=== PATIENT | male | born 1955 | race Caucasian/White ===

== ENCOUNTER 2025-06-29 06:02 | Observation (INO) ==
--- NOTE | 2025-04-20 11:23 | Anesthesiology Consultation ---
Date of Service April 20, 2025 Assessment & Plan (1) Encounter for pre-operative examination: - check BSG am DOS. - Per store person on 04/20/25: No known infectious disease contacts, current infectious disease symptoms in past 10 days or COVID positive test result in the past 30 days. Chart Review Chart Review: Acceptable Risk for Surgery and Patient NOT seen in Pre Admission Testing History Surgery Operation Date: 04/27/25 10:00 Proposed Procedures p Robotic Assisted Laparoscopic Partial Nephrectomy, Possible Radical Nephrectomy, Possible Laparoscopic Hand-Assisted - Right - Nghia Rivers DO Height/Weight Height: 5 ft 10 in Weight: 122.47 kg Allergies Allergy/AdvReac Type Severity Reaction Status Date / Time yellow dye Allergy Intermediate Lips Verified 04/20/25 10:32 Swelling penicillin AdvReac Intermediate Gastrointestinal Uncoded 04/20/25 10:32 Upset, Abdominal Pain Medications Home Medications Medication Instructions Recorded Confirmed Last Taken atorvastatin 80 mg tablet 80 mg PO HS 04/05/25 04/20/25 Unknown finasteride 5 mg tablet (Proscar) 5 mg PO QAM 04/05/25 04/20/25 Unknown gabapentin 400 mg capsule 400 mg PO TID 04/05/25 04/20/25 Unknown (Neurontin) lisinopril 20 mg tablet (Zestril) 20 mg PO QAM 04/05/25 04/20/25 Unknown metformin 500 mg tablet 500 mg PO HS 04/05/25 04/20/25 Unknown multivit,Ca,min-iron 8 mg-folic 1 tab PO DAILY 04/05/25 04/20/25 Unknown acid 200 mcg-lycopene 600 mcg tablet (Centrum Men) niacin 500 mg tablet 500 mg PO 04/05/25 04/20/25 Unknown omeprazole 20 mg capsule,delayed 20 mg PO QAM 04/05/25 04/20/25 Unknown release aspirin 81 mg tablet 81 mg PO QAM 04/20/25 04/20/25 Unknown metoprolol succinate 25 mg 25 mg PO QAM 04/20/25 04/20/25 Unknown tablet,extended release 24 hr tamsulosin 0.4 mg capsule (Flomax) 0.4 mg PO QAM 04/20/25 04/20/25 Unknown Past Medical History Medical History (Updated 04/20/25 @ 11:20 by Marilyn M. Onink, PA-C) Acid reflux History of Lyme disease completed antibiotic tx History of pneumonia 10/2024 - [facility] IP - resolved History of renal cell carcinoma 2016 - surgery only [facility] - reoccurence, reason for procedure 04/27/25 History of stroke 2014? - no residuals - unsure if ever went to neurology Hypertension Prediabetes Oral Renal mass Reason for procedure 04/27/25 Past Surgical History Surgical History History of arthroplasty of left knee History of arthroscopy of left knee History of colonoscopy History of partial nephrectomy 2016 [facility] Social History Smoking Status: Former smoker Do You Dip or Chew Tobacco: No ("Years ago") Smoking End Date: "Years ago 12 years ago" Hx Alcohol Use: Yes Alcohol type: beer alcohol intake frequency: 0-2 drinks per day Hx Substance Use: No substance use type: does not use Lab Results Anesthesia Preop Results Results Anesthesia Widget: WBC 10.24 K/ul (4.8-10.8) 04/14/25 Hgb 13.6 g/dl (14.0-18.0) L 04/14/25 Hct 40.0 % (42.0-52.0) L 04/14/25 Plt 309 K/uL (130-400) 04/14/25 Na 139 mmol/L (136-145) 04/14/25 K 3.8 mmol/L (3.5-5.1) 04/14/25 Cl 104 mmol/L (98-107) 04/14/25 CO2 28 mmol/L (21-32) 04/14/25 BUN 8 mg/dl (6-23) 04/14/25 Creat 1.11 mg/dl (0.6-1.4) 04/14/25 Glucose Level 121 mg/dl (70-99(Fasting)) H 04/14/25 Testing Electrocardiogram Date: 04/14/25 NSR, rate 77 bpm Possible anterior infarct, age undetermined Chest X-Ray Date: 04/14/25 No acute findings. Other Testing Abdomen pelvis CT 04/14/25 Right renal enhancing mass lesion, likely neoplastic; the possibility of renal cell carcinoma could not be excluded.
[~2025-06-29 06:02] MED LIST: LACTATED RINGER'S 1,000 ML IV SCH; ceFAZolin 3000MG 3,000 MG/72.5 ML BAG IV SCH
[2025-06-29 06:43] LABS: Hematocrit (blood only) 41.3 % (42.0-52.0); Hemoglobin 13.4 g/dl (14.0-18.0); Immature Granulocytes # (auto) 0.06 K/uL (0.01-0.20); Immature Granulocytes % (auto) 0.6 %; Mean Corpuscular Hemoglobin 30.2 pg (25.0-34.0); Mean Corpuscular Volume 93.0 fL (80.0-100.0); Platelet Count 262 K/uL (130-400); RDW Standard Deviation 47.1 fL (36.4-46.3); Red Blood Count 4.44 M/uL (4.70-6.10); White Blood Count 10.35 K/ul (4.8-10.8)
[2025-06-29] MEDS ORDERED: ROCURONIUM BROMIDE 10 MG/ML 5 ML VIAL IV ONE ×3 (06:43→09:21)
[2025-06-29] MEDS: LACTATED RINGER'S 1,000 ML IV SCH ×2 (06:43→13:27)
[2025-06-29] MEDS ORDERED: MIDAZOLAM HCL 1 MG/ML 2ML VIAL ONE (06:43)
[2025-06-29] MEDS ORDERED: PHENYLEPHRINE HCL 10 MG/ML VIAL ONE (06:43)
[2025-06-29] MEDS ORDERED: ONDANSETRON INJ 2 MG/ML 2 ML VIAL ONE (06:43)
[2025-06-29] MEDS ORDERED: PROPOFOL IV EMULSION 10 MG/ML 20 ML VIAL IV ONE (06:43)
[2025-06-29] MEDS ORDERED: LIDOCAINE 2% 2 ML VIAL/AMP(20MG/ML) INFIL ONE (06:43)
[2025-06-29] MEDS ORDERED: ONDANSETRON INJ 2 MG/ML 2 ML VIAL IV PRN ×2 (07:07→12:27)
[2025-06-29] MEDS ORDERED: ATROPINE SULFATE 0.1 MG/ML 10ML SYR IV PRN (07:07)
--- NOTE | 2025-06-29 07:13 | History & Physical Report ---
Date of Service June 29, 2025 Assessment & Plan (1) History of renal cell carcinoma: (2) Renal mass: (3) History of renal cell cancer: (4) Elevated PSA: Plan Patient with history of RCC s/p partial nephrectomy with development of new mass. Patient has greater than 3 cm mass that appear to be centrally located and causing now possible compression on the collecting system with patient's significant history of kidney cancer with likely reoccurrence and involvement of the central portion of the kidney with close proximity to the vessels. Had extensively discussed possible need for radical nephrectomy as opposed to partial. Will likely plan to move forward with partial nephrectomy however may need to convert to radical depending on the actual appearance of the mass once the mass is able to be further evaluated. Did discuss possible need to convert to a lap hand-assisted as well if unable to safely remove the tumor without possible injury or findings of invasion into the vessels or collecting system. Risks and benefits discussed at length for procedure. These include bleeding, infection, injury to surrounding tissues or organs, and risks associated with anesthesia. Patient states understanding and agrees to proceed. Will sign consent and proceed. Plan for right laparoscopic robot assisted partial nephrectomy possible radical nephrectomy possible hand-assisted laparoscopic History of Present Illness Primary Care Provider: Rui Carrasco Patient here for procedure. Centrally located renal mass suspicious for malignancy. No changes in medical issues. No major changes in urinary issues. Continued issues and concerns. No change in pain or discomfort. No severe fevers or chills. No chest pain or shortness of breath. Risks and benefits discussed at length for procedure. These include bleeding, infection, injury to surrounding tissues or organs, and risks associated with anesthesia. Patient and/or family states understanding and agrees to proceed. Consent and supporting information completed. Allergies Allergy/AdvReac Type Severity Reaction Status Date / Time yellow dye Allergy Intermediate Lips Verified 06/29/25 06:06 Swelling Penicillins AdvReac Intermediate Gastrointestinal Verified 06/29/25 06:06 Upset Home Medications Medication Instructions Recorded Confirmed Type atorvastatin 80 mg tablet 80 mg PO HS 04/05/25 06/29/25 History finasteride 5 mg tablet (Proscar) 5 mg PO QAM 04/05/25 06/29/25 History gabapentin 400 mg capsule 400 mg PO TID 04/05/25 06/29/25 History (Neurontin) lisinopril 20 mg tablet (Zestril) 20 mg PO QAM 04/05/25 06/29/25 History metformin 500 mg tablet 500 mg PO HS 04/05/25 06/29/25 History multivit,Ca,min-iron 8 mg-folic 1 tab PO DAILY 04/05/25 06/29/25 History acid 200 mcg-lycopene 600 mcg tablet (Centrum Men) niacin 500 mg tablet 500 mg PO HS 04/05/25 06/29/25 History omeprazole 20 mg capsule,delayed 20 mg PO QAM 04/05/25 06/29/25 History release aspirin 81 mg tablet 81 mg PO QAM 04/20/25 06/29/25 History metoprolol succinate 25 mg 25 mg PO QAM 04/20/25 06/29/25 History tablet,extended release 24 hr tamsulosin 0.4 mg capsule (Flomax) 0.4 mg PO QAM 04/20/25 06/29/25 History ibuprofen 400 mg tablet 400 mg PO Q6H PRN Pain 06/29/25 06/29/25 History Past Med/Surg History Problem List Elevated PSA History of renal cell cancer Sciatica Medical History Acid reflux Prediabetes Oral History of Lyme disease completed antibiotic tx History of stroke 2014? - no residuals - unsure if ever went to neurology Hypertension History of pneumonia 10/2024 - [facility] IP - resolved History of renal cell carcinoma 2016 - surgery only [facility] - reoccurence, reason for procedure 04/27/25 Renal mass Reason for upcoming procedure Surgical History History of arthroscopy of left knee History of arthroplasty of left knee History of colonoscopy History of partial nephrectomy 2016 [facility] Family History Grandmother Diabetes Social History Smoking Status: Former smoker Tobacco Type: Cigarettes and Smokeless Tobacco (Dip or Chew) Smoking End Date: 15 or more; Second Hand Exposure: No; Do You Dip or Chew Tobacco: No (quit over 10 yrs ago); Tobacco Cessation Education Requested by Patient: No Hx Alcohol Use: Yes Alcohol type: beer Hx Substance Use: No Preferred Language: Serbian Communication Ability: Effective Knife Blade Polisher Required: No Beliefs That Will Affect Care: None Current Living Situation: Spouse Other Information That Helps Us Care for You: No Feels Safe at Home: Yes Safety Concerns: Feels Safe At This Time Assistive Devices: None Review of Systems All systems reviewed & are unremarkable except as noted in HPI & below Physical Exam Physical Exam: General: Alert/Arousable. No Acute illness. HEENT: Inspection normal. Normal inspection of face. Normal inspection of neck. Psychologic: Normal affect/No change in mentation. Respiratory: No use of accessory muscles. No respiratory changes or exacerbation or changes with tachypnea or dyspnea. Cardiovascular: No tachycardia Skin: [place] and Dry. No new rashes or visible lesions. Abdomen: Normal inspection. No guarding. Results & Data Vital Signs (Past 12 Hours) Vital Signs Temp Pulse Resp BP Pulse Ox O2 Del Method 06/29/25 06:16 Room Air 06/29/25 06:16 36.8 C 85 20 179/92 H 97 Room Air PG Care Time/CCT Total # of Minutes Spent Total Time Spent with Patient: Total time spent is greater than 50% in coordination of care (as documented) at patient's floor/unit and/or counseling patient: Coding Level of Care Code None Diagnoses History of renal cell carcinoma Z85.528 Renal mass N28.89 History of renal cell cancer Z85.528 Elevated PSA R97.20
[2025-06-29 07:14] LABS: Anion Gap 10.0 (3-11); Blood Urea Nitrogen 17.0 mg/dl (6-23); Calcium 9.1 mg/dl (8.6-10.3); Carbon Dioxide 23.0 mmol/L (21-32); Chloride 105.0 mmol/L (98-107); Creatinine Clr Calc Pharmacy 82.7 ml/min; Glucose 106.0 mg/dl (70-99(Fasting)); Potassium 4.3 mmol/L (3.5-5.1); Sodium 138.0 mmol/L (136-145)
[2025-06-29] MEDS: ceFAZolin 3000MG 3,000 MG/72.5 ML BAG IV SCH (07:24)
[2025-06-29] MEDS ORDERED: DEXAMETHASONE SOD INJ 4 MG/ML VIAL ONE (08:05)
[2025-06-29] MEDS ORDERED: ACETAMINOPHEN 1000 MG/100 ML IV IV ONE (08:08)
[2025-06-29] MEDS ORDERED: DexMEDEtomidine HCL IV 100 MCG/ML VIAL IV ONE (08:09)
[2025-06-29] MEDS ORDERED: KETAMINE HCL 10MG/ML SYR ONE (08:09)
[2025-06-29] MEDS ORDERED: GLYCOPYRROLATE 0.2 MG/ML VIAL ONE (08:46)
[2025-06-29] MEDS: FLOSEAL HEMOSTATIC MATRIX 10ML TOP SCH (10:17)
[2025-06-29] MEDS: SURGICEL ABSORB HEMOSTAT 2IN X 14IN TOP SCH (10:17)
[2025-06-29] MEDS: TISSEEL FIBRIN SEALANT 10ML TOP SCH (10:18)
[2025-06-29] MEDS ORDERED: SUGAMMADEX SODIUM 200 MG/2 ML VIAL IV ONE ×2 (10:26)
[2025-06-29] MEDS: BUPIVACAINE 0.5 % 5 MG/1 ML MPF 30ML VIAL ONE (10:40)
--- NOTE | 2025-06-29 11:07 | Operative Report ---
PG Post Operative Report Pre & Post Diagnosis Operation Date: 06/29/25 07:30 Pre-Op Diagnosis: 1. History of renal cell carcinoma, 2. Renal mass, 3. History of renal cell cancer, 4. Elevated PSA Post-Op Diagnosis: 1. History of renal cell carcinoma, 2. Renal mass, 3. History of renal cell cancer, 4. Elevated PSA I identified the patient and participated in the time-out.: Yes Procedure Operation Date: 06/29/25 07:30 Actual Procedures Robotic Assisted Laparoscopic Radical Right Nephrectomy with extensive lysis of adhesions (Right) - Nghia Rivers, Surgeon Nghia Rivers, II, DO Reliability Manager NAIMA Givens Estimated Blood Loss 50 Findings Consistent with Post-Op Diagnosis Approx 4 cm central mass of the right kidney. Extensive adhesions of the right lateral wall secondary to scarring along retroperitoneum. No significant adhesions or scarring along the bowel or colon. Specimens Right Radical Kidney Drains 18 Fr Williamson Anesthesia Type General Complications none Disposition Disposition: Recovery Room Indications Patient with right renal mass suspicious for malignancy with history of Renal Cell Carcinoma s/p partial right nephrectomy. Risks and benefits discussed at length. Description of Procedure The patient was brought to the operative suite and placed under general endotracheal intubation anesthesia in the supine position. The patient was transferred to lateral position with the right flank exposed. The patient was placed into a flex'ed position and then placed into mild reverse Trendelenberg. At this point, the patient prepped and draped in the usual sterile fashion and a timeout was completed. Preoperative weight based antibiotics had been given. MAITE's and SCD's were placed on the patient's lower extremities. A catheter was placed by nursing using sterile technique. With the time out completed the patient was flexed and the skin was marked. The lateral port site was anesthetized. A small incision was made into the skin and subcutaneous tissues. A Varess needle was selected and placed. The needle was easily moved and it was irrigated and aspirated without any issues or concerns for placement. Insufflation commenced. The 8 mm camera port was placed. The abdominal cavity was further insufflated. The laparoscopic camera was placed and the abdominal cavity inspected. No concerning features were noted. At this point, the skin was marked for port placement and 8mm working ports were placed. The skin was anesthetized down to fascia and an approx 1cm incision was made to place the 2 x 8mm ports. A 12 mm robotic port was then placed in the most inferior position. Two 12 mm conservation assistant ports were also placed in similar fashion under direct visualization along the midline. The robot was positioned and docked. The camera was placed and all trocars were positioned under direct visualization. Maria D Aggarwal was integral in port placement, camera utilization, and docking procedure. She also assisted during the extensive lysis of adhesions. She remained in sterile attire and then proceeded to assist the remainder of the case. The colon was mobilized medially to expose the retroperitoneum and the area assessed. There were no significant adhesions or attachments noted on along the bowel. No adhesions or scarring along the colon or bowel on inspection. There was significant scarring and adhesions in the retroperitoneum to the abdominal side wall likely from previous partial nephrectomy. Extensive Adhesions were freed to allow access. These were dissected with blunt technique and sharp technique. Approximately 20 additional minutes were utilized to lyse and create adhesions and scarring along the retroperitoneum and retroperitoneal fat. No bowel or colon was noted in the tissue being dissected. Once freed and the retroperitoneum exposed, Cautery was used to assist dissection and control bleeding. The retroperitoneal fat was assessed. Starting distally the retroperitoneum was dissected and care was taken to dissect down near the IVC. The gonadal vein and ureter were identified. This was then followed superiorly. As the dissection went closer to hilum more scarred and thicken tissue was noted. Dissection stayed toward the midline along the IVC and the ureter and gonadal vein were followed up towards the renal hilum. The dissection was followed to the renal pelvis. The Renal Vein was identified and exposed. Dissection was taken further superior. The Renal Artery and Vein were then cleaned and exposed. Multiple accessory vessels were noted along the posterior portion. Dissection along the posterior portion of the kidney also found significantly more adhesions and areas of scar tissue. A number of the vessels appeared to be entering directly into the region of where the mass was approximately located. The main renal artery and vein were found also to be going near directly into the location of the visible mass within the mid pole of the kidney. Due to the location of the vessels the multiple accessory vessels and the positioning of the mass the tumor did not appear to be resectable with partial nephrectomy. At this point it was decided to convert to a radical nephrectomy in order to fully remove the mass as well as safely completely excise the suspicious tumor and surrounding tissue. The peritoneal fat on the posterior edge was largely adhered to the mass and appeared to have a better plane deep to the retroperitoneum. This was dissected along allowing the RASHAWN nephric fat and surrounding tissues to remain attached and removed with the specimen. The vessels had been fully isolated both the artery and the vein. Multiple Weck/Hem-o-emerson clips were utilized to clip and ligate the accessory vessels going towards the mass on the posterior edge. The robotic stapling device was then selected. Utilizing vascular staple loads the artery and vein were able to be ligated stapled and cut. 3 staple loads were utilized. The kidney was immediately inspected after and appeared to debbi appropriately. No significant or major bleeding was noted. Along the posterior edge there was a number of the smaller vessels that had been incised using cautery that were found to have what appeared to be backbleeding likely from the now ligation of the main vessels. Utilizing hemoclips and cautery these were controlled. No other significant bleeding was noted. Dissection was then taken superiorly posteriorly laterally and inferiorly around the kidney with care taken to avoid exposure of the mass or issues with resection. There was moderate amounts of scar tissue that were noted largely posteriorly though there was some continuing superiorly and laterally. Care was taken during the entire dissection to monitor the surrounding tissue. There was no major issues or concerns with the dissection. The adrenal was able to be retracted without major issue. The kidney was then fully freed. Once fully freed the last portions of the posterior dissection were completed with care taken to remove all of the perinephric tissue down to the psoas muscle with the kidney specimen. Utilizing the 2 additional staple loads available the ureter and inferior perinephric/retroperitoneal fat were able to be freed and ligated. The kidney was then completely freed and moved into the pelvis. The resection bed was fully inspected. There was no major areas of bleeding or other concern s. The liver inferior edge was inspected there was no injury or other problems. The area was irrigated utilizing sterile water and the entire resection. No major bleeding other areas of concern or residual tissue or lesion were noted. Hemostatic agents were then placed with Surgicel and Floseal over top of the vessel stumps and the resection bed. The entire dissection space was inspected one final time. No bleeding or injuries or areas of concern were noted. No tumor or other concerning features were noted. At this point, the robot was undocked and moved away from the patient. The port sites were all assessed laparoscopically. The midline 12 mm port sites were closed with the Wilmer-Rodríguez device and were closed with Vicryl suture. The other ports were assessed and no issues observed. The inferior 12 mm robotic port was opened further exposing fascia which was then opened in order to removed the radical kidney specimen. The fascial layers were opened once inside the abdomen the kidney was able to be grasped and completely removed. No major issues or concerns. The abdomen was then inspected. No areas of concern or other issue no sign of major bleeding or other problems. A 1-0 Vicryl suture was then used to close in a running fashion the peritoneum and posterior rectus sheath. A 1-0 PDS suture was used to close fascia/the anterior rectus sheath. A 2-0 Vicryl suture was then used to close the subcutaneous tissues of the lower wound. The skin at each site was closed with a surgical stapling device. The area was cleaned and bandages placed on each incision. The patient was cleaned and bandaged. The patient was moved back into the supine position The patient was cleaned, aroused from anesthesia, and transferred to the pacu in stable condition having tolerated the procedure well with no complications. I was present and participated in all aspects of the procedure. NAIMA Givens was critical in the portions as mentioned above. Will plan to admit and observe the patient overnight with plans for possible discharge as he improves. Will likely need staple removal in approximately 7 to 10 days with pathology discussion in approximately the same timeframe. I attest to the content of the Intraoperative Record and any orders documented therein. Any exceptions are noted below.
[2025-06-29 11:51] LABS: Hematocrit (blood only) 38.2 % (42.0-52.0); Hemoglobin 12.5 g/dl (14.0-18.0); Immature Granulocytes # (auto) 0.13 K/uL (0.01-0.20); Immature Granulocytes % (auto) 0.9 %; Mean Corpuscular Hemoglobin 30.5 pg (25.0-34.0); Mean Corpuscular Volume 93.2 fL (80.0-100.0); Platelet Count 236 K/uL (130-400); RDW Standard Deviation 47.5 fL (36.4-46.3); Red Blood Count 4.10 M/uL (4.70-6.10); White Blood Count 14.20 K/ul (4.8-10.8)
[2025-06-29 12:09] LABS: Anion Gap 6.0 (3-11); Blood Urea Nitrogen 18.0 mg/dl (6-23); Calcium 8.4 mg/dl (8.6-10.3); Carbon Dioxide 24.0 mmol/L (21-32); Chloride 105.0 mmol/L (98-107); Creatinine Clr Calc Pharmacy 77.7 ml/min; Glucose 166.0 mg/dl (70-99(Fasting)); Potassium 4.9 mmol/L (3.5-5.1); Sodium 135.0 mmol/L (136-145)
[2025-06-29] MEDS ORDERED: PHARMACY GLYCEMIC MGMT CONSULT PRN (12:27)
[2025-06-29] MEDS ORDERED: ACETAMINOPHEN 325 MG TAB PO PRN (12:27)
[2025-06-29] MEDS ORDERED: MoRPHine SULFATE 4 MG/ML 1 ML CARP\\VIAL IV PRN (12:27)
--- NOTE | 2025-06-29 13:14 | Pharmacy Report ---
Pharmacy Glycemic Short Note 2 - Date of Service June 29, 2025 - Glycemic Short BSG Results (Last 24 hours): 06/29/25 06/29/25 06/29/25 06:20 06:21 11:26 Glucose 106 H 166 H POC Glucose 110 H OUTPATIENT ANTIDIABETIC REGIMEN: * metformin ER 500mg PO daily [id number] been ordered for 10/17 AM ASSESSMENT: * Jayson is a 70 year old male who was admitted today for a laparoscopic right radical nephrectomy secondary to renal cell carcinoma (POD#0). Pharmacy was consulted for glycemic management post op. * BSG preop was 110mg/dL and postop was 166mg/dL. He did receive 8mg iv dexamethasone preop. Lantus 10 units SQ x 1 was ordered and a weight based bolus insulin regimen with a stress of 1 was started. PLAN FOR INPATIENT GLYCEMIC CONTROL: * Hold outpatient oral diabetes medications * Basal insulin * Lantus 10 units SQ x1, will reassess additional need 10/17 AM * Bolus insulin * NovoLog per scale ACHS or Q6hrs while NPO * Goal Range: Low 110 mg/dL - High 150 mg/dL * Correction Factor: 35 mg/dL/unit * Nutritional / Prandial insulin per carb ratio of 1 unit per 12 grams CHO consumed
[2025-06-29] MEDS: LANTUS PER UNIT CHARGE SC ONE (13:49)
[2025-06-29] MEDS: GABAPENTIN 400 MG CAP PO SCH (13:49)
[2025-06-29] MEDS: INSULIN ASPART PER UNIT CHARGE SC SCH (13:50)
--- NOTE | 2025-06-29 15:30 | Anesthesiology Progress Note ---
Date of Service June 29, 2025 Anesthesia Post Procedure Vital Signs Vital Signs: Temp Pulse Pulse Resp BP Pulse Ox O2 Del Method 06/29/25 15:06 16 169/91 H 95 Room Air 06/29/25 14:57 98.6 F 85 17 173/90 H 96 Room Air 06/29/25 12:50 98.6 F 68 18 182/82 H 96 Room Air 06/29/25 12:20 98.1 F 74 18 174/99 H 95 Room Air 06/29/25 12:00 71 14 156/92 H 98 Nasal Cannula 06/29/25 11:45 71 13 150/83 H 96 Nasal Cannula 06/29/25 11:40 76 22 161/91 H 95 Nasal Cannula 06/29/25 11:30 97.5 F L 76 16 151/82 H 93 Nasal Cannula 06/29/25 11:20 76 17 152/80 H 97 Oxymask 06/29/25 11:10 77 16 155/93 H 99 Oxymask 06/29/25 11:04 97.0 F L 81 18 163/88 H 100 Oxymask 06/29/25 06:16 Room Air 06/29/25 06:16 98.2 F 85 20 179/92 H 97 Room Air O2 Flow Rate 06/29/25 15:06 06/29/25 14:57 06/29/25 12:50 06/29/25 12:20 06/29/25 12:00 2 06/29/25 11:45 2 06/29/25 11:40 2 06/29/25 11:30 2 06/29/25 11:20 5 06/29/25 11:10 8 06/29/25 11:04 8 06/29/25 06:16 06/29/25 06:16 Transfer of Care Handoff Completed per policy Notes Mental Status: alert / awake / arousable and participated in evaluation Patient Amnestic to Procedure: Yes Nausea / Vomiting: adequately controlled Pain: adequately controlled Airway Patency, RR, SpO2: stable & adequate BP & HR: stable & adequate Hydration State: stable & adequate Anesthetic Complications: no major complications apparent and Pt Satisfied with anesthetic care
--- NOTE | 2025-06-29 16:08 | Hospitalist Consultation ---
Date of Consultation June 29, 2025 Assessment & Plan (1) Acid reflux: (2) Prediabetes: (3) History of stroke: (4) Hypertension: (5) History of renal cell carcinoma: (6) Renal mass: Plan #Right partial nephrectomy #Hx of RCC - Per Urology, Right Radical Nephrectomy - routine post operative cares #left lower extremity edema #petechial rash - acute edema and petechial rash to the left lower extremity started yesterday, will obtain ultrasound of left lower extremity to rule out clot - he does have chronic venous stasis changes and ulceration over the anterior left ankle, will have the wound care nurse evaluate - CRP, procalcitonin, trend inflammatory markers through the morning #Possible volume overload - This may be related to his nephrectomy and current procedure, no known history of underlying cardiac cardiomyopathy. Will obtain a BMP. Likely be cautious of fluid likely need diuresis once is appropriate given his nephrectomy # leukocytosis - likely related to the procedure, will add a CRP and procalcitonin as he does have a slight ulceration in the left lower extremity, no fevers chills or other generalized signs of illness #hyponatremia - mild will check in the morning status post procedure likely received fluids during that this is likely to normalize #history of stroke - no chronic deficits, no acute findings, maintain aspirin 81 mg as soon as feasible after procedure - risk factor management with statin as below #morbid obesity - will have dietary/nutrition meet with him, he was in the process of evaluating utilization of Ozempic in the outpatient setting. #hypertension - modestly elevated at procedure, restart lisinopril, continue metoprolol. 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 No history of withdrawal but per his he has not gone long enough recently to have elicited withdrawal - continue to monitor with SIOMARA, moderate risk history. Initial WDX protocol if symptoms arise. #peripheral neuropathy - continue gabapentin 400 mg 3 times daily History of Present Illness Reason for Consultation: Medical Mgmt, KE Edema Requesting Physician: Nghia Rivers II, DO Attending Physician: Nghia H. Rivers, II, DO History of Present Illness 70-year-old male history of renal cell carcinoma in 2016, with recurrence in 2024 admitted for right radical nephrectomy for recurrence of renal mass. Also noted history of hypertension, hyperlipidemia, stroke with no residual deficits, prediabetes but on metformin. Peripheral neuropathy, prior tobacco dependence, ongoing alcohol use, GERD. Request for consult for medical management in the postoperative phase. Reports he has been taking his medications as prescribed. In discussion of his history he smokes stop smoking about 20 years ago use both oral tobacco aunts cigarettes. At least [id number] history prior to that. He does report ongoing and quite significant alcohol use with at least 3-4 beers and sometimes quite a bit more. Denies ever having blacked out. Does not drink to the point of severe intoxication but it is regular. Per his he is never gone long enough to go for through withdrawal or have any symptoms of such. Otherwise remarkable his recent history has had some edema in the lower extremities which is severe and atypical for him he has been less active over the last couple days over the left lower extremity has had quite significant edema over the last 48 hours. He developed a red rash that is concerning him over the left ankle. He also has an ulceration on the lopez that has been present for several weeks. Other than that he has been taking his medications as prescribed. No other concerns or recent health changes per patient Allergies Allergy/AdvReac Type Severity Reaction Status Date / Time yellow dye Allergy Intermediate Lips Verified 06/29/25 06:06 Swelling Penicillins AdvReac Intermediate Gastrointestinal Verified 06/29/25 06:06 Upset Home Medications Medication Instructions Recorded Confirmed Type atorvastatin 80 mg tablet 80 mg PO HS 04/05/25 06/29/25 History finasteride 5 mg tablet (Proscar) 5 mg PO QAM 04/05/25 06/29/25 History gabapentin 400 mg capsule 400 mg PO TID 04/05/25 06/29/25 History (Neurontin) lisinopril 20 mg tablet (Zestril) 20 mg PO QAM 04/05/25 06/29/25 History metformin 500 mg tablet 500 mg PO HS 04/05/25 06/29/25 History multivit,Ca,min-iron 8 mg-folic 1 tab PO DAILY 04/05/25 06/29/25 History acid 200 mcg-lycopene 600 mcg tablet (Centrum Men) niacin 500 mg tablet 500 mg PO HS 04/05/25 06/29/25 History omeprazole 20 mg capsule,delayed 20 mg PO QAM 04/05/25 06/29/25 History release aspirin 81 mg tablet 81 mg PO QAM 04/20/25 06/29/25 History metoprolol succinate 25 mg 25 mg PO QAM 04/20/25 06/29/25 History tablet,extended release 24 hr tamsulosin 0.4 mg capsule (Flomax) 0.4 mg PO QAM 04/20/25 06/29/25 History ibuprofen 400 mg tablet 400 mg PO Q6H PRN Pain 06/29/25 06/29/25 History Patient History Medical History Acid reflux Prediabetes Oral History of Lyme disease completed antibiotic tx History of stroke 2014? - no residuals - unsure if ever went to neurology Hypertension History of pneumonia 10/2024 - [facility] IP - resolved History of renal cell carcinoma 2016 - surgery only [facility] - reoccurence, reason for procedure 04/27/25 Renal mass Reason for upcoming procedure Surgical History History of arthroscopy of left knee History of arthroplasty of left knee History of colonoscopy History of partial nephrectomy 2016 [facility] Family History Grandmother Diabetes Social History Smoking Status: Former smoker Tobacco Type: Cigarettes and Smokeless Tobacco (Dip or Chew) Smoking End Date: 15 or more; Second Hand Exposure: No; Do You Dip or Chew Tobacco: No (quit over 10 yrs ago); Tobacco Cessation Education Requested by Patient: No Hx Alcohol Use: Yes Alcohol type: beer Hx Substance Use: No Preferred Language: Setswana Communication Ability: Effective Web Development Intern Required: No Beliefs That Will Affect Care: None Current Living Situation: Spouse Other Information That Helps Us Care for You: No Feels Safe at Home: Yes Safety Concerns: Feels Safe At This Time Assistive Devices: None Review of Systems Review of Systems: All systems reviewed & are unremarkable except as noted in Subjective Physical Exam Constitutional: WD/WN, vitals as above Eyes: PERRL, conjunctivae normal, anicteric sclerae Neck: trachea midline, no thyromegaly Cardiovascular: RRR, no murmur, no edema Gastrointestinal (Abdomen): normal bowel sounds, soft, nontender, no hepatosplenomegaly Musculoskeletal: 2+ edema in the lower extremities, petechial rash on the left lower extremity, no palpable Homans' sign. There is an anterior ulceration approximately 1 cm x 2 cm on the anterior thigh with a small amount of surrounding erythema, no regional warmth. Skin: See above Results & Data Results & Data Vital Signs (Past 12 Hours) Vital Signs Temp Pulse Pulse Resp BP Pulse Ox O2 Del Method 06/29/25 15:06 16 169/91 H 95 Room Air 06/29/25 14:57 37 C 85 17 173/90 H 96 Room Air 06/29/25 12:50 37 C 68 18 182/82 H 96 Room Air 06/29/25 12:20 36.7 C 74 18 174/99 H 95 Room Air 06/29/25 12:00 71 14 156/92 H 98 Nasal Cannula 06/29/25 11:45 71 13 150/83 H 96 Nasal Cannula 06/29/25 11:40 76 22 161/91 H 95 Nasal Cannula 06/29/25 11:30 36.4 C L 76 16 151/82 H 93 Nasal Cannula 06/29/25 11:20 76 17 152/80 H 97 Oxymask 06/29/25 11:10 77 16 155/93 H 99 Oxymask 06/29/25 11:04 36.1 C L 81 18 163/88 H 100 Oxymask 06/29/25 06:16 Room Air 06/29/25 06:16 36.8 C 85 20 179/92 H 97 Room Air O2 Flow Rate 06/29/25 15:06 06/29/25 14:57 06/29/25 12:50 06/29/25 12:20 06/29/25 12:00 2 06/29/25 11:45 2 06/29/25 11:40 2 06/29/25 11:30 2 06/29/25 11:20 5 06/29/25 11:10 8 06/29/25 11:04 8 06/29/25 06:16 06/29/25 06:16 Laboratory Results 06/29/25 06/29/25 06/29/25 13:18 11:26 06:21 WBC 14.20 H 10.35 RBC 4.10 L 4.44 L Hgb 12.5 L 13.4 L Hct 38.2 L 41.3 L MCV 93.2 93.0 MCH 30.5 30.2 MCHC 32.7 32.4 RDW Std Deviation 47.5 H 47.1 H RDW Coeff of Esvin 13.8 13.8 Plt Count 236 262 MPV 9.2 L 9.2 L Immature Gran % (Auto) 0.9 0.6 Neut % (Auto) 88.4 64.1 Lymph % (Auto) 6.8 18.8 Foster % (Auto) 2.0 8.1 Eos % (Auto) 1.5 7.6 Baso % (Auto) 0.4 0.8 Neut # (Auto) 12.56 H 6.63 H Lymph # (Auto) 0.96 L 1.95 Foster # (Auto) 0.29 0.84 H Eos # (Auto) 0.21 0.79 H Baso # (Auto) 0.05 0.08 Immature Gran # (Auto) 0.13 0.06 Sodium 135 L 138 Potassium 4.9 4.3 Chloride 105 105 Carbon Dioxide 24 23 Anion Gap 6 10 BUN 18 17 Creatinine 1.16 1.09 Est Cr Clr Drug Dosing 77.7 82.7 eGFR 66.92 72.11 BUN/Creatinine Ratio 15.5 15.6 Glucose 166 H 106 H POC Glucose 132 H Calcium 8.4 L 9.1 Blood Type A Positive Antibody Screen NEGATIVE 06/29/25 06:20 WBC RBC Hgb Hct MCV MCH MCHC RDW Std Deviation RDW Coeff of Esvin Plt Count MPV Immature Gran % (Auto) Neut % (Auto) Lymph % (Auto) Foster % (Auto) Eos % (Auto) Baso % (Auto) Neut # (Auto) Lymph # (Auto) Foster # (Auto) Eos # (Auto) Baso # (Auto) Immature Gran # (Auto) Sodium Potassium Chloride Carbon Dioxide Anion Gap BUN Creatinine Est Cr Clr Drug Dosing eGFR BUN/Creatinine Ratio Glucose POC Glucose 110 H Calcium Blood Type Antibody Screen PG Care Time/CCT Total # of Minutes Spent Total Time Spent with Patient: Total time spent is greater than 50% in coordination of care (as documented) at patient's floor/unit and/or counseling patient: Coding Level of Care Code 15902 IN/OBS CONSULT LVL 3,45M Diagnoses Acid reflux K21.9 Prediabetes R73.03 History of stroke Z86.73 Hypertension I10 History of renal cell carcinoma Z85.528 Renal mass N28.89
--- NOTE | 2025-06-29 18:26 | Ultrasound Report ---
EXAMINATION: Extremity ultrasound lower extremity LEFT CLINICAL HISTORY: Swelling petechiae PRIORS: None TECHNIQUE: Ultrasound interrogation of the deep venous structures was performed with grayscale, color Doppler, compression and augmentation. Edema present in the subcutaneous tissues of the calf. FINDINGS: The left common femoral, superficial femoral, saphenous, popliteal and tibial veins demonstrate normal compressibility, frequency and augmentation. IMPRESSION: No sonographic evidence of deep venous thrombosis in the left lower extremity Electronically signed by Yola Ramirez 06-29-2025 6:25 PM
[2025-06-29] MEDS: MELATONIN 3 MG TAB PO PRN (21:13)
[2025-06-29] MEDS: DOCUSATE SODIUM 100 MG CAP PO SCH (21:13)
[2025-06-29] MEDS: ATORVASTATIN 40 MG TAB PO SCH (21:14)
[2025-06-29] MEDS: NYSTATIN POWDER 15GM BTL EXT SCH ×2 (21:15)
[2025-06-29] MEDS: NIACIN 500 MG TAB PO SCH (21:41)
[2025-06-30] MEDS: COUGH DROP (SUGAR FREE) LOZ 24 LOZ/1 BOX BUCCAL PRN (02:53)
[2025-06-30 05:59] LABS: Hematocrit (blood only) 31.1 % (42.0-52.0); Hemoglobin 10.6 g/dl (14.0-18.0); Immature Granulocytes # (auto) 0.05 K/uL (0.01-0.20); Immature Granulocytes % (auto) 0.4 %; Mean Corpuscular Hemoglobin 31.5 pg (25.0-34.0); Mean Corpuscular Volume 92.3 fL (80.0-100.0); Platelet Count 212 K/uL (130-400); RDW Standard Deviation 48.1 fL (36.4-46.3); Red Blood Count 3.37 M/uL (4.70-6.10); White Blood Count 12.38 K/ul (4.8-10.8)
[2025-06-30 06:19] LABS: Anion Gap 8.0 (3-11); Blood Urea Nitrogen 21.0 mg/dl (6-23); Calcium 7.9 mg/dl (8.6-10.3); Carbon Dioxide 24.0 mmol/L (21-32); Chloride 104.0 mmol/L (98-107); Creatinine Clr Calc Pharmacy 49.8 ml/min; Glucose 112.0 mg/dl (70-99(Fasting)); Potassium 4.0 mmol/L (3.5-5.1); Sodium 136.0 mmol/L (136-145)
[2025-06-30 07:04] LABS: Hemoglobin A1C 6.9 % (4.5-5.6)
[2025-06-30] MEDS: FINASTERIDE 5 MG TAB PO SCH (08:37)
[2025-06-30] MEDS: METOPROLOL SUCC 25MG EXT REL TAB PO SCH (08:38)
[2025-06-30] MEDS: TAMSULOSIN HCL 0.4 MG CAP PO SCH (08:38)
--- NOTE | 2025-06-30 11:06 | Hospitalist Progress Note ---
Date of Service June 30, 2025 Assessment & Plan (1) Acid reflux: (2) Prediabetes: (3) History of stroke: (4) Hypertension: (5) History of renal cell carcinoma: (6) Renal mass: Plan #Right partial nephrectomy #Hx of RCC - Per Urology, Right Radical Nephrectomy - routine post operative cares #left lower extremity edema #petechial rash - acute edema and petechial rash to the left lower extremity started yesterday, will obtain ultrasound of left lower extremity to rule out clot - he does have chronic venous stasis changes and ulceration over the anterior left ankle, will have the wound care nurse evaluate - CRP, procalcitonin, trend inflammatory markers through the morning - rash present bilaterally, consistent with hemosiderin deposition secondary to venous congestion, ultrasound negative as above - will start Lasix twice daily dosing. Expect 2 to 3 days. I think he will have a much better reserve with 3-5 kg of fluid removed. Reviewed with urology. Lasix ordered 20mg IV BID 0900, 1700 #Possible volume overload - This may be related to his nephrectomy and current procedure, no known history of underlying cardiac cardiomyopathy. Will obtain a BMP. Likely be cautious of fluid likely need diuresis once is appropriate given his nephrectomy - Lasix as above, 3-5 kg fluid removal over the next couple of days # leukocytosis - likely related to the procedure, will add a CRP and procalcitonin as he does have a slight ulceration in the left lower extremity, no fevers chills or other generalized signs of illness - trend inflammatory markers leukocytosis secondary to procedure #hyponatremia - mild will check in the morning status post procedure likely received fluids during that this is likely to normalize - improving, check in the morning #history of stroke - no chronic deficits, no acute findings, maintain aspirin 81 mg as soon as feasible after procedure - risk factor management with statin as below #morbid obesity - will have dietary/nutrition meet with him, he was in the process of evaluating utilization of Ozempic in the outpatient setting. #hypertension - modestly elevated at procedure, restart lisinopril, continue metoprolol. 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 No history of withdrawal but per his he has not gone long enough recently to have elicited withdrawal - continue to monitor with SIOMARA, moderate risk history. Initial WDX protocol if symptoms arise. #peripheral neuropathy - continue gabapentin 400 mg 3 times daily Admission and Anticipated Discharge Date Admission Date: June 29, 2025 Subjective Doing okay this morning. Sitting up in the chair at the bedside. Pain is well-managed. Blood pressures have been fine. He is eating some breakfast this morning. No new complaints or concerns. We discussed the edema in his lower extremities the fact that has been progress over the last couple of weeks. He has been on Lasix but does not take it currently. This is by far the most severe is ever been. States he has been urinating quite a bit at least they have been emptying the catheter quite a bit. No other nursing concerns or events. Physical Exam Constitutional: WD/WN, vitals as above Eyes: PERRL, conjunctivae normal, anicteric sclerae Neck: trachea midline, no thyromegaly Cardiovascular: RRR, no murmur, no edema Gastrointestinal (Abdomen): normal bowel sounds, soft, nontender, no hepatosplenomegaly Musculoskeletal: 2+ edema in the lower extremities, petechial rash on the Bilateral lower extremities, left greater than right, no palpable Homans' sign. There is an anterior ulceration approximately 1 cm x 2 cm on the anterior thigh with a small amount of surrounding erythema, no regional warmth. Skin: See above Results & Data Results & Data Vital Signs (Past 12 Hours) Vital Signs Temp Pulse Resp BP Pulse Ox O2 Del Method 06/30/25 07:00 37.0 C 86 16 111/57 L 93 Room Air 06/30/25 03:00 36.7 C 88 14 148/86 H 94 Room Air Laboratory Results 06/30/25 06/30/25 06/29/25 07:35 05:29 20:28 WBC 12.38 H RBC 3.37 L Hgb 10.6 L Hct 31.1 L MCV 92.3 MCH 31.5 MCHC 34.1 RDW Std Deviation 48.1 H RDW Coeff of Esvin 14.2 Plt Count 212 MPV 9.4 Immature Gran % (Auto) 0.4 Neut % (Auto) 79.2 Lymph % (Auto) 9.3 [place] % (Auto) 7.4 Eos % (Auto) 3.1 Baso % (Auto) 0.6 Neut # (Auto) 9.82 H Lymph # (Auto) 1.15 L [place] # (Auto) 0.91 H Eos # (Auto) 0.38 Baso # (Auto) 0.07 Immature Gran # (Auto) 0.05 Sodium 136 Potassium 4.0 Chloride 104 Carbon Dioxide 24 Anion Gap 8 BUN 21 Creatinine 1.81 H D Est Cr Clr Drug Dosing 49.8 eGFR 39.24 BUN/Creatinine Ratio 11.6 Glucose 112 H POC Glucose 107 H 149 H Estimat Average Glucose 151 Hemoglobin A1c 6.9 H Calcium 7.9 L C-Reactive Protein 3.92 H B-Natriuretic Peptide 105 H Procalcitonin 0.25 06/29/25 06/29/25 06/29/25 16:32 15:46 13:18 WBC RBC Hgb Hct MCV MCH MCHC RDW Std Deviation RDW Coeff of Esvin Plt Count MPV Immature Gran % (Auto) Neut % (Auto) Lymph % (Auto) [place] % (Auto) Eos % (Auto) Baso % (Auto) Neut # (Auto) Lymph # (Auto) [place] # (Auto) Eos # (Auto) Baso # (Auto) Immature Gran # (Auto) Sodium Potassium Chloride Carbon Dioxide Anion Gap BUN Creatinine Est Cr Clr Drug Dosing eGFR BUN/Creatinine Ratio Glucose POC Glucose 172 H 132 H Estimat Average Glucose Hemoglobin A1c Calcium C-Reactive Protein Cancelled B-Natriuretic Peptide Procalcitonin 06/29/25 11:26 WBC 14.20 H RBC 4.10 L Hgb 12.5 L Hct 38.2 L MCV 93.2 MCH 30.5 MCHC 32.7 RDW Std Deviation 47.5 H RDW Coeff of Esvin 13.8 Plt Count 236 MPV 9.2 L Immature Gran % (Auto) 0.9 Neut % (Auto) 88.4 Lymph % (Auto) 6.8 [place] % (Auto) 2.0 Eos % (Auto) 1.5 Baso % (Auto) 0.4 Neut # (Auto) 12.56 H Lymph # (Auto) 0.96 L [place] # (Auto) 0.29 Eos # (Auto) 0.21 Baso # (Auto) 0.05 Immature Gran # (Auto) 0.13 Sodium 135 L Potassium 4.9 Chloride 105 Carbon Dioxide 24 Anion Gap 6 BUN 18 Creatinine 1.16 Est Cr Clr Drug Dosing 77.7 eGFR 66.92 BUN/Creatinine Ratio 15.5 Glucose 166 H POC Glucose Estimat Average Glucose Hemoglobin A1c Calcium 8.4 L C-Reactive Protein 1.09 H B-Natriuretic Peptide Procalcitonin Diagnostic Findings Venous Doppler Study 06/29/25 15:47 EXAMINATION: Extremity ultrasound lower extremity LEFT CLINICAL HISTORY: Swelling petechiae PRIORS: None TECHNIQUE: Ultrasound interrogation of the deep venous structures was performed with grayscale, color Doppler, compression and augmentation. Edema present in the subcutaneous tissues of the calf. FINDINGS: The left common femoral, superficial femoral, saphenous, popliteal and tibial veins demonstrate normal compressibility, frequency and augmentation. IMPRESSION: No sonographic evidence of deep venous thrombosis in the left lower extremity Electronically signed by Yola Ramirez 06-29-2025 6:25 PM PG Care Time/CCT Total # of Minutes Spent Total Time Spent with Patient: Total time spent is greater than 50% in coordination of care (as documented) at patient's floor/unit and/or counseling patient: Coding Level of Care Code 83523 SUB INP/OBS CARE 2/35MIN Diagnoses Acid reflux K21.9 Prediabetes R73.03 History of stroke Z86.73 Hypertension I10 History of renal cell carcinoma Z85.528 Renal mass N28.89
[2025-06-30] MEDS: FUROSEMIDE INJ 20 MG/2 ML VIAL IV SCH (11:28)
--- NOTE | 2025-06-30 11:32 | Urology Progress Note ---
Date of Service June 30, 2025 Assessment & Plan (1) Renal mass: (2) History of renal cell cancer: Plan POD #1 s/p Robotic Assisted Laparoscopic Radical Right Nephrectomy with extensive lysis of adhesions with Dr. Rivers Hospitalist consulted postoperatively for medical management Feeling well this morning Afebrile and hemodynamically stable Labs - WBCs 12.38, hemoglobin 10.6, creatinine 1.81 Williamson draining clear yellow urine Plan: Advance diet as tolerated Maintain Williamson catheter for now Encourage ambulation Continue supportive care and pain management as needed Appreciate medicine assistance/recommendations Lasix started today per medicine due to possible fluid overload Wound care nurse consulted for LLE wound/ulceration Discharge possibly in 1-2 days pending patient progression Attending note: Patient assessed, evaluated, interviewed, and examined. Patient is resting comfortably. Has been dealing with some issues with swelling in the lower extremity uses been attributing this surgery. Patient has been evaluated by the medical team have discussed options. Possible diuresis with utilization of medication. Patient had present with rash vs vasculitis vs early cellulitis of the lower extremity. Was overall mild and remains mild with some mild improvement. Patient is not having shortness of breath or other major issues. Will plan to monitor patient closely with reassessment. Will have monitoring overnight. Did discuss catheter removal today however with plans for diuresis also discussed possibly keeping it until tomorrow. Patient is going to consider the options and would likely have it removed afterwards he wishes to proceed with removal Will plan and anticipate possible discharge tomorrow if patient continues to improving and remains stable. Will plan for follow-up in approximately 1 to 2 weeks for pathology, staple removal, and assessment Admission and Anticipated Discharge Date Admission Date: June 29, 2025 Subjective Patient seen at bedside this morning. He is awake and sitting up in bedside chair on arrival. No acute distress. Reports he is feeling well. No significant pain. Has ambulated without issue. Williamson draining clear yellow urine. Denies f/c/n/v. Tolerating diet. Review of Systems Constitutional: as per Subjective / HPI Genitourinary: + as per Subjective / HPI Physical Exam Constitutional: no acute distress Respiratory: no respiratory distress and no labored breathing Neurologic: moves all extremities and awake Psychiatric: A+Ox3, euthymic affect Genitourinary: Williamson intact Results & Data Vital Signs (Past 12 Hours) Vital Signs Temp Pulse Resp BP Pulse Ox O2 Del Method 06/30/25 07:00 37.0 C 86 16 111/57 L 93 Room Air 06/30/25 03:00 36.7 C 88 14 148/86 H 94 Room Air PG Care Time/CCT Total # of Minutes Spent Total Time Spent with Patient: Total time spent is greater than 50% in coordination of care (as documented) at patient's floor/unit and/or counseling patient: Coding Level of Care Code 87083 SUB INP/OBS CARE 2/35MIN Diagnoses Renal mass N28.89 History of renal cell cancer Z85.528
--- NOTE | 2025-06-30 13:07 | Pharmacy Report ---
Pharmacy Glycemic Short Note 2 - Date of Service June 30, 2025 - Glycemic Short BSG Results (Last 24 hours): 06/29/25 06/29/25 06/29/25 13:18 16:32 20:28 Glucose POC Glucose 132 H 172 H 149 H 06/30/25 06/30/25 06/30/25 05:29 07:35 11:34 Glucose 112 H POC Glucose 107 H 128 H OUTPATIENT ANTIDIABETIC REGIMEN: * metformin ER 500mg PO daily [id number] been ordered for 06/30 AM ASSESSMENT: 06/30: * Jayson received a total of 17 units of insulin yesterday (10 units were basal and 7 units were bolus) * Fasting BSG was 107mg/dL this morning. Since no further steroids are ordered and his blood glucose is fairly well controlled on a single oral agent at home, did not order any further basal insulin. Carb ratio was also loosened to help prevent hypoglycemia 06/29: * Jayson is a 70 year old male who was admitted today for a laparoscopic right radical nephrectomy secondary to renal cell carcinoma (POD#0). Pharmacy was consulted for glycemic management post op. * BSG preop was 110mg/dL and postop was 166mg/dL. He did receive 8mg iv dexamethasone preop. Lantus 10 units SQ x 1 was ordered and a weight based bolus insulin regimen with a stress of 1 was started. PLAN FOR INPATIENT GLYCEMIC CONTROL: * Hold outpatient oral diabetes medications * Basal insulin * NONE * Bolus insulin * NovoLog per scale ACHS or Q6hrs while NPO * Goal Range: Low 110 mg/dL - High 150 mg/dL * Correction Factor: 35 mg/dL/unit * Nutritional / Prandial insulin per carb ratio of 1 unit per 25 grams CHO consumed
[2025-06-30] MEDS ORDERED: FUROSEMIDE INJ 20 MG/2 ML VIAL IV SCH (17:00)
[2025-07-01 06:20] LABS: Hematocrit (blood only) 35.5 % (42.0-52.0); Hemoglobin 11.6 g/dl (14.0-18.0); Immature Granulocytes # (auto) 0.06 K/uL (0.01-0.20); Immature Granulocytes % (auto) 0.5 %; Mean Corpuscular Hemoglobin 30.4 pg (25.0-34.0); Mean Corpuscular Volume 92.9 fL (80.0-100.0); Platelet Count 224 K/uL (130-400); RDW Standard Deviation 48.0 fL (36.4-46.3); Red Blood Count 3.82 M/uL (4.70-6.10); White Blood Count 12.63 K/ul (4.8-10.8)
[2025-07-01 06:48] LABS: Anion Gap 9.0 (3-11); Blood Urea Nitrogen 23.0 mg/dl (6-23); Calcium 8.2 mg/dl (8.6-10.3); Carbon Dioxide 24.0 mmol/L (21-32); Chloride 104.0 mmol/L (98-107); Creatinine Clr Calc Pharmacy 42.5 ml/min; Glucose 134.0 mg/dl (70-99(Fasting)); Magnesium 1.8 mg/dl (1.7-2.4); Potassium 3.9 mmol/L (3.5-5.1); Sodium 137.0 mmol/L (136-145)
[2025-07-01 07:41] VITALS: RESP 18
--- NOTE | 2025-07-01 09:23 | Urology Progress Note ---
Date of Service July 01, 2025 Assessment & Plan (1) History of renal cell cancer: Plan Postop day #2 status post nephrectomy Seems to be recovering well Vital signs are stable Creatinine has elevated in a manner that is expected for his surgery. He is anxious to go home and feels well overall Has been undergoing some relatively aggressive diuresis since his arrival and I have touched base with Dr. Goodson about need for continued diuresis while inpatient versus outpatient overall, we feel there would be considerable benefit to one additional day of inpt diuresis prior to d/c home Admission and Anticipated Discharge Date Admission Date: June 29, 2025 Subjective Subjectively feeling well Still has a Williamson catheter in place because he was undergoing relatively aggressive diuresis yesterday He is ambulatory His pain is under control Is tolerating a diet He is anxious to go home Physical Exam Physical Exam: Dressings removed All incisions appropriate Jennifer present No signs of infection or significant drainage Urine clear with the Williamson in place Results & Data Vital Signs (Past 12 Hours) Vital Signs Temp Pulse Resp BP Pulse Ox O2 Del Method 07/01/25 07:40 37.1 C 82 18 127/81 93 Room Air 06/30/25 23:03 37.3 C 80 16 138/79 91 Room Air PG Care Time/CCT Total # of Minutes Spent Total Time Spent with Patient: Total time spent is greater than 50% in coordination of care (as documented) at patient's floor/unit and/or counseling patient: Coding Level of Care Code 57336 SUB INP/OBS CARE 3/50MIN Diagnoses History of renal cell cancer Z85.528
--- NOTE | 2025-07-01 12:17 | Hospitalist Progress Note ---
Date of Service July 01, 2025 Assessment & Plan (1) Acid reflux: (2) Prediabetes: (3) History of stroke: (4) Hypertension: (5) History of renal cell carcinoma: (6) Renal mass: Plan #Right partial nephrectomy #Hx of RCC - Per Urology, Right Radical Nephrectomy - routine post operative cares #left lower extremity edema #petechial rash - acute edema and petechial rash to the left lower extremity started yesterday, will obtain ultrasound of left lower extremity to rule out clot - he does have chronic venous stasis changes and ulceration over the anterior left ankle, will have the wound care nurse evaluate - CRP, procalcitonin, trend inflammatory markers through the morning - rash present bilaterally, consistent with hemosiderin deposition secondary to venous congestion, ultrasound negative as above - approximately 5 L out, stable renal function. Modest improvement in lower extremity edema. Expect another 3-5 L before we are nearing his baseline. Continue with IV Lasix at current dose, strict intake and output. Daily weights #Possible volume overload - This may be related to his nephrectomy and current procedure, no known history of underlying cardiac cardiomyopathy. Will obtain a BMP. Likely be cautious of fluid likely need diuresis once is appropriate given his nephrectomy - Lasix as above, 3-5 kg fluid removal over the next couple of days - see edema as above, diuresis, status post 5 L out last 24 hours .at least another 3-5 L # leukocytosis - likely related to the procedure, will add a CRP and procalcitonin as he does have a slight ulceration in the left lower extremity, no fevers chills or other generalized signs of illness - trend inflammatory markers leukocytosis secondary to procedure - Stable, improving CRP #hyponatremia - mild will check in the morning status post procedure likely received fluids during that this is likely to normalize - improving, check in the morning #history of stroke - no chronic deficits, no acute findings, maintain aspirin 81 mg as soon as feasible after procedure - risk factor management with statin as below #morbid obesity - will have dietary/nutrition meet with him, he was in the process of evaluating utilization of Ozempic in the outpatient setting. #hypertension - modestly elevated at procedure, restart lisinopril, continue metoprolol. 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 No history of withdrawal but per his he has not gone long enough recently to have elicited withdrawal - continue to monitor with SIOMARA, moderate risk history. Initial WDX protocol if symptoms arise. #peripheral neuropathy - continue gabapentin 400 mg 3 times daily Admission and Anticipated Discharge Date Admission Date: June 29, 2025 Subjective doing okay this morning. Quite significant improvement in lower extremity edema and the red rash. No changes in breathing overall. Spent a good bit of time talking with the patient and his . They are somewhat frustrated as they thought they were discharged yesterday. We talked at length about the benefits of diuresis especially given his recent nephrectomy. They are somewhat understanding. Discussed the fact that I still think he has quite significant amount of diuresis. Expect it will take at least another day. They are reluctant but the degree would they would stay. Otherwise no dizziness, orthostasis. No other events or concerns Physical Exam Constitutional: WD/WN, vitals as above Eyes: PERRL, conjunctivae normal, anicteric sclerae Neck: trachea midline, no thyromegaly Cardiovascular: RRR, no murmur, no edema Gastrointestinal (Abdomen): normal bowel sounds, soft, nontender, no hepatosplenomegaly Musculoskeletal: 1+ edema in the lower extremities, petec hial rash on the bilateral lower extremities, left greater than right, both the edema and the petechial rash have demonstrated interval improvement compared to yesterday. There is an anterior ulceration approximately 1 cm x 2 cm on the anterior thigh with a small amount of surrounding erythema, no regional warmth. Skin: See above Results & Data Results & Data Vital Signs (Past 12 Hours) Vital Signs Temp Pulse Resp BP Pulse Ox O2 Del Method 07/01/25 07:40 37.1 C 82 18 127/81 93 Room Air Laboratory Results 07/01/25 07/01/25 07/01/25 11:32 07:36 06:03 WBC 12.63 H RBC 3.82 L Hgb 11.6 L Hct 35.5 L MCV 92.9 MCH 30.4 MCHC 32.7 RDW Std Deviation 48.0 H RDW Coeff of Esvin 14.1 Plt Count 224 MPV 9.4 Immature Gran % (Auto) 0.5 Neut % (Auto) 71.3 Lymph % (Auto) 11.1 [place] % (Auto) 7.6 Eos % (Auto) 9.2 Baso % (Auto) 0.3 Neut # (Auto) 9.01 H Lymph # (Auto) 1.40 [place] # (Auto) 0.96 H Eos # (Auto) 1.16 H Baso # (Auto) 0.04 Immature Gran # (Auto) 0.06 Sodium 137 Potassium 3.9 Chloride 104 Carbon Dioxide 24 Anion Gap 9 BUN 23 Creatinine 2.12 H D Est Cr Clr Drug Dosing 42.5 eGFR 32.46 BUN/Creatinine Ratio 10.8 Glucose 134 H POC Glucose 111 H 213 H Calcium 8.2 L Magnesium 1.8 C-Reactive Protein 8.71 H Procalcitonin 0.35 06/30/25 06/30/25 20:47 16:37 WBC RBC Hgb Hct MCV MCH MCHC RDW Std Deviation RDW Coeff of Esvin Plt Count MPV Immature Gran % (Auto) Neut % (Auto) Lymph % (Auto) [place] % (Auto) Eos % (Auto) Baso % (Auto) Neut # (Auto) Lymph # (Auto) [place] # (Auto) Eos # (Auto) Baso # (Auto) Immature Gran # (Auto) Sodium Potassium Chloride Carbon Dioxide Anion Gap BUN Creatinine Est Cr Clr Drug Dosing eGFR BUN/Creatinine Ratio Glucose POC Glucose 153 H 139 H Calcium Magnesium C-Reactive Protein Procalcitonin PG Care Time/CCT Total # of Minutes Spent Total Time Spent with Patient: Total time spent is greater than 50% in coordination of care (as documented) at patient's floor/unit and/or counseling patient: Coding Level of Care Code 74520 SUB INP/OBS CARE 2/35MIN Diagnoses Acid reflux K21.9 Prediabetes R73.03 History of stroke Z86.73 Hypertension I10 History of renal cell carcinoma Z85.528 Renal mass N28.89
[2025-07-01] MEDS: FUROSEMIDE 40 MG TAB PO ONE (17:27)
[2025-07-01] MEDS: FUROSEMIDE 40 MG/4 ML VIAL IV ONE (20:31)
[2025-07-02 06:17] LABS: Hematocrit (blood only) 34.0 % (42.0-52.0); Hemoglobin 11.1 g/dl (14.0-18.0); Immature Granulocytes # (auto) 0.06 K/uL (0.01-0.20); Immature Granulocytes % (auto) 0.5 %; Mean Corpuscular Hemoglobin 30.4 pg (25.0-34.0); Mean Corpuscular Volume 93.2 fL (80.0-100.0); Platelet Count 224 K/uL (130-400); RDW Standard Deviation 46.8 fL (36.4-46.3); Red Blood Count 3.65 M/uL (4.70-6.10); White Blood Count 13.03 K/ul (4.8-10.8)
[2025-07-02 06:31] LABS: Anion Gap 8.0 (3-11); Blood Urea Nitrogen 24.0 mg/dl (6-23); Calcium 8.2 mg/dl (8.6-10.3); Carbon Dioxide 28.0 mmol/L (21-32); Chloride 100.0 mmol/L (98-107); Creatinine Clr Calc Pharmacy 45.7 ml/min; Glucose 129.0 mg/dl (70-99(Fasting)); Magnesium 1.8 mg/dl (1.7-2.4); Potassium 3.4 mmol/L (3.5-5.1); Sodium 136.0 mmol/L (136-145)
[2025-07-02 07:12] VITALS: BP 128/80; PULSE 82; TEMP 98.4; O2SAT 94
--- NOTE | 2025-07-02 09:56 | Urology Progress Note ---
Date of Service July 02, 2025 Assessment & Plan (1) History of renal cell cancer: Plan Status post nephrectomy Catheter out this morning Discharge home Adequate diuresis over the past 48 hours Cr stable -specifically warned about continued ibuprofen use as his said he takes ibuprofen at home and his creatinine/kidney function now makes this higher risk Admission and Anticipated Discharge Date Admission Date: June 29, 2025 Subjective Subjectively doing well Had further diuresis yesterday of approximately 4 L Catheter still in place but he is anxious to have it removed He was already seen by the hospitalist and the plan will be discharge home later today Pain is well-controlled Physical Exam Physical Exam: Incisions all appropriate, abdomen soft, urine clear Results & Data Vital Signs (Past 12 Hours) Vital Signs Temp Pulse Pulse Resp BP Pulse Ox O2 Del Method 07/02/25 08:19 Room Air 07/02/25 07:11 36.9 C 82 18 128/80 94 Room Air 07/01/25 23:42 37.3 C 83 18 106/66 93 Room Air PG Care Time/CCT Total # of Minutes Spent Total Time Spent with Patient: Total time spent is greater than 50% in coordination of care (as documented) at patient's floor/unit and/or counseling patient: Coding Level of Care Code None Diagnoses History of renal cell cancer Z85.528
--- NOTE | 2025-07-02 10:49 | Hospitalist Progress Note ---
Date of Service July 02, 2025 Assessment & Plan (1) Acid reflux: (2) Prediabetes: (3) History of stroke: (4) Hypertension: (5) History of renal cell carcinoma: (6) Renal mass: Plan #Right partial nephrectomy #Hx of RCC - Per Urology, Right Radical Nephrectomy - routine post operative cares #left lower extremity edema #petechial rash - acute edema and petechial rash to the left lower extremity started yesterday, will obtain ultrasound of left lower extremity to rule out clot - he does have chronic venous stasis changes and ulceration over the anterior left ankle, will have the wound care nurse evaluate - CRP, procalcitonin, trend inflammatory markers through the morning - rash present bilaterally, consistent with hemosiderin deposition secondary to venous congestion, ultrasound negative as above - 15 pounds diuresed over 2 days, will discharge with 20 mg oral Lasix in the morning, advised to follow-up in the outpatient clinic in 5 to 7 days for recheck of kidney function, discussion of long-term dosing, appropriate for discharge to outpatient management at this time #Possible volume overload - This may be related to his nephrectomy and current procedure, no known history of underlying cardiac cardiomyopathy. Will obtain a BMP. Likely be cautious of fluid likely need diuresis once is appropriate given his nephrectomy - Lasix as above, 3-5 kg fluid removal over the next couple of days - see edema as above, diuresis, status post 10-12 L out last 48 hours, discharge with Lasix as above #anterior lopez ulceration - chronic in nature, complicated by edema. This should heal expectantly now that the edema is under much better control. If does not he should follow-up in the primary clinic for recheck # leukocytosis - likely related to the procedure, will add a CRP and procalcitonin as he does have a slight ulceration in the left lower extremity, no fevers chills or other generalized signs of illness - trend inflammatory markers leukocytosis secondary to procedure - Stable, improving CRP #hyponatremia - mild will check in the morning status post procedure likely received fluids during that this is likely to normalize - improving, check in the morning #history of stroke - no chronic deficits, no acute findings, maintain aspirin 81 mg as soon as feasible after procedure - risk factor management with statin as below #morbid obesity - will have dietary/nutrition meet with him, he was in the process of evaluating utilization of Ozempic in the outpatient setting. #hypertension - modestly elevated at procedure, restart lisinopril, continue metoprolol. 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 No history of withdrawal but per his he has not gone long enough recently to have elicited withdrawal - continue to monitor with SIOMARA, moderate risk history. Initial WDX protocol if symptoms arise. #peripheral neuropathy - continue gabapentin 400 mg 3 times daily Admission and Anticipated Discharge Date Admission Date: June 29, 2025 Subjective feeling much better this morning. Quite a bit of output over the last 2 days. Approximately 15 pounds of total fluid diuresed. Marked improvement in the lower extremity edema. He is able to get up and walk having no longer any lower extremity discomfort. Discussed at length with the patient volume overload. Checking a home weight in the morning. Recording those values and to follow-up in the primary clinic if he gains more than 3 pounds. Also advised him that he will discharge on Lasix 20 mg in the morning and he should follow-up within a week in the primary clinic to discuss recheck of renal function and long-term dosing. Physical Exam Constitutional: WD/WN, vitals as above Eyes: PERRL, conjunctivae normal, anicteric sclerae Neck: trachea midline, no thyromegaly Cardiovascular: RRR, no murmur, no edema Gastrointestinal (Abdomen): normal bowel sounds, soft, nontender, no hepatosplenomegaly Musculoskeletal: Trace edema in the lower extremities left greater than right, petechial rash on the bilateral lower extremities, left greater than right, both the edema and the petechial rash have demonstrated continued interval improvement compared to previous days. There is an anterior ulceration approximately 1 cm x 2 cm on the anterior thigh with a small amount of surrounding erythema, no regional warmth. Skin: See above Results & Data Results & Data Vital Signs (Past 12 Hours) Vital Signs Temp Pulse Pulse Resp BP Pulse Ox O2 Del Method 07/02/25 08:19 Room Air 07/02/25 07:11 36.9 C 82 18 128/80 94 Room Air 07/01/25 23:42 37.3 C 83 18 106/66 93 Room Air Laboratory Results 07/02/25 07/02/25 07/01/25 07:14 05:30 20:16 WBC 13.03 H RBC 3.65 L Hgb 11.1 L Hct 34.0 L MCV 93.2 MCH 30.4 MCHC 32.6 RDW Std Deviation 46.8 H RDW Coeff of Esvin 13.7 Plt Count 224 MPV 9.9 Immature Gran % (Auto) 0.5 Neut % (Auto) 69.8 Lymph % (Auto) 10.8 [place] % (Auto) 8.4 Eos % (Auto) 10.3 Baso % (Auto) 0.2 Neut # (Auto) 9.10 H Lymph # (Auto) 1.41 [place] # (Auto) 1.09 H Eos # (Auto) 1.34 H Baso # (Auto) 0.03 Immature Gran # (Auto) 0.06 Sodium 136 Potassium 3.4 L Chloride 100 Carbon Dioxide 28 Anion Gap 8 BUN 24 H Creatinine 1.97 H Est Cr Clr Drug Dosing 45.7 eGFR 35.44 BUN/Creatinine Ratio 12.2 Glucose 129 H POC Glucose 126 H 164 H Calcium 8.2 L Magnesium 1.8 C-Reactive Protein 7.62 H 07/01/25 07/01/25 16:16 11:32 WBC RBC Hgb Hct MCV MCH MCHC RDW Std Deviation RDW Coeff of Esvin Plt Count MPV Immature Gran % (Auto) Neut % (Auto) Lymph % (Auto) [place] % (Auto) Eos % (Auto) Baso % (Auto) Neut # (Auto) Lymph # (Auto) [place] # (Auto) Eos # (Auto) Baso # (Auto) Immature Gran # (Auto) Sodium Potassium Chloride Carbon Dioxide Anion Gap BUN Creatinine Est Cr Clr Drug Dosing eGFR BUN/Creatinine Ratio Glucose POC Glucose 169 H 111 H Calcium Magnesium C-Reactive Protein PG Care Time/CCT Total # of Minutes Spent Total Time Spent with Patient: Total time spent is greater than 50% in coordination of care (as documented) at patient's floor/unit and/or counseling patient: Coding Level of Care Code 43821 SUB INP/OBS CARE 2/35MIN Diagnoses Acid reflux K21.9 Prediabetes R73.03 History of stroke Z86.73 Hypertension I10 History of renal cell carcinoma Z85.528 Renal mass N28.89
[2025-07-03] MEDS ORDERED: FUROSEMIDE 20 MG TAB PO SCH (09:00)
--- NOTE | 2025-07-04 13:08 | Discharge Summary ---
Date of Service July 04, 2025 Admission HPI Per Admitting Provider Patient here for procedure. Centrally located renal mass suspicious for malignancy. No changes in medical issues. No major changes in urinary issues. Continued issues and concerns. No change in pain or discomfort. No severe fevers or chills. No chest pain or shortness of breath. Risks and benefits discussed at length for procedure. These include bleeding, infection, injury to surrounding tissues or organs, and risks associated with anesthesia. Patient and/or family states understanding and agrees to proceed. Consent and supporting information completed. Admission Exam Per Admitting Provider See H&P Principal Diagnosis Renal Cell Carcinoma Discharge Exam General: Alert in no acute distress. HEENT: Normocephalic Atraumatic. Inspection normal. Psychologic: Normal affect. Skin: Elliott and Dry. No rashes or visible lesions. Abdomen: Soft Non-distended. No rebound or guarding. Discharge Data Allergies Allergy/AdvReac Type Severity Reaction Status Date / Time yellow dye Allergy Intermediate Lips Verified 06/29/25 06:06 Swelling Penicillins AdvReac Intermediate Gastrointestinal Verified 06/29/25 06:06 Upset Consultations 06/29/25 12:27 Consult Hospitalist Routine Procedures Performed Operation Date: 06/29/25 07:30 Actual Procedures p Robotic Assisted Laparoscopic Radical Right Nephrectomy(Right) - Nghia Rivers, Ordered Studies 06/29/25 15:47 US venous duplex leg [US venous doppler LE LT] Urgent Hospital Course (1) History of renal cell cancer: Plan Status post nephrectomy Catheter out this morning Discharge home Adequate diuresis over the past 48 hours Cr stable -specifically warned about continued ibuprofen use as his said he takes ibuprofen at home and his creatinine/kidney function now makes this higher risk Total Time Total Time Spent Total Time Spent (In Minutes): 10 minutes Total Time Includes: Examination of the Patient, Discharge Planning, Medication Reconciliation and Communication With Other Providers Discharge Plan Discharge Items Patient Disposition: Home - Self-Care Reason For Visit: Elevated PSA, Other Specified Disorders of Kidney Discharge Diagnosis: Renal mass, History of RCC Health Concerns: Right Radical Nephrectomy Volume Overload - IV diuretics used during your hospitalization to remove excess fluid. Approximately 15 pounds of fluid diuresed in the last 2 days prior to discharge. An oral Lasix pill was started to be taken every morning. We would like you to follow-up very closely in the outpatient clinic within 5 days for recheck and discussion of additional diuresis if needed. Would also be beneficial to use a scale to check your weight every morning, record those values and follow-up with the primary clinic to discuss Triggers for ongoing management. If you gain more than 3 pounds over the course of 1 to 2 days reach out to the primary clinic. Activity: Per Instructions section Non-emergency contact: Surgeon and Urologist Call non-emergency contact if: you have any medication questions, your symptoms worsen, your pain is not controlled, you have a fever, your wound has increased redness, your wound has increased drainage and your wound pain has increased Follow-up/Referrals: Nghia Rivers, [Physician] - (THE UROLOGY OFFICE WILL CONTACT YOU WITH A HOSPITAL FOLLOW UP VISIT.) Rui Carrasco D.O. [Primary Care Provider] - Diet: Carb Consistent or DM2 Addtl Attending Provider Instructions: Please take all medications as prescribed and keep all follow-ups as scheduled. Please call our office at [phone] with any questions, concerns or need to reschedule appointments for any reason. We are happy to assist you. The urology office will contact you to arrange follow-up. Recovering at home: We recommend having someone with you for the first few days after surgery to help care for you. It is okay to shower tomorrow. Please avoid swimming, bathing or using hot tub until incisions are well healed. Avoid driving until you are not requiring pain medication any further. Walk at least a few times a day. Increase your distance, as you feel able. Stairs in your home are okay. Please avoid strenuous or sexual activity until your follow-up. We recommend using stool softener (i.e. Colace) to prevent constipation and straining, especially the first two weeks post operatively. Call [facility] at [phone] if you experience: Chest pain or trouble breathing (call 521 or go to the hospital). Fever of 101F or higher Symptoms of infection at incision site, including redness or swelling, warmth, or bad-smelling drainage If you have catheter, and you notice: o Bloody urine or drainage that is dark red or has large clots (Please remember a small amount of blood is normal) o No drainage from the catheter for more than 6 hours o The catheter comes out of your bladder Pain that is not controlled with medicines Volume overload: Patient was diuresed during his hospitalization approximately 15 pounds. Recheck BMP and discuss long-term diuretic dosing. He was dischar ged on 20 mg daily. Also advised to check daily weights and review those in the clinic in 1 to 2 weeks Pending Studies at Discharge: Yes (pathology) Stand-Alone Forms: My [facility] [place], Smoking Cessation Medications and DC Order Prescriptions: New tramadol 50 mg tablet 50 mg PO Q6H PRN (Reason: pain) Qty: 10 0RF furosemide 20 mg Tablet 20 mg PO QAM Qty: 14 0RF Continued omeprazole 20 mg capsule,delayed release(DR/EC) 20 mg PO QAM lisinopril [Zestril] 20 mg tablet 20 mg PO QAM Centrum Men 8 mg iron- 200 mcg-600 mcg tablet 1 tab PO DAILY finasteride [Proscar] 5 mg tablet 5 mg PO QAM gabapentin [Neurontin] 400 mg capsule 400 mg PO TID metformin 500 mg tablet 500 mg PO HS atorvastatin 80 mg tablet 80 mg PO HS niacin 500 mg tablet 500 mg PO HS tamsulosin [Flomax] 0.4 mg Capsule 0.4 mg PO QAM aspirin 81 mg Tablet 81 mg PO QAM metoprolol succinate 25 mg tablet extended release 24 hr 25 mg PO QAM ibuprofen 400 mg Tablet 400 mg PO Q6H PRN (Reason: Pain) Discharge Orders: Discharge Order (Routine); Ordered 07/02/25 Ordered By: Mario Casarez/Other Patient Handouts: Furosemide Oral Tablet, Heart Failure: Tracking Your Weight, High Blood Sugar (Hyperglycemia), Hypoglycemia (Low Blood Sugar), Managing Type 2 Diabetes Admission Data Admit Date/Time: 06/29/25 11:05 Attending Provider: Nghia Rivers Admit Provider: Nghia Rivers Primary Care Provider: Rui Carrasco Other Providers: Rui Goodson Other Interventions: Discharge Summary Assessment (RN) Last Done: 07/02/25 13:33 Coding Level of Care Code INP/OBS EV SAME DAY LV 1,45MIN Diagnoses History of renal cell cancer Z85.528
== END 2025-07-02 14:08 | disposition home or self-care (01) ==
LOC: ASU 06:02 → 3E 11:05 → INTOOBSV 11:05